=== PATIENT | female | born 1955 | race Caucasian/White ===

== ENCOUNTER → 2016-06-19 | Outpatient (CLI) | payer OTHER ==
[~2016-06-19] MED LIST: BENAZEPRIL PO; DESYREL100 MG PO; HYDROCHLOROTHIA25 MG PO; PROZAC40 MG PO; WELLBUTRIN XL150 M2 PO
== END | disposition home or self-care (01) ==
LOC: CSSDAY 08:33
DX: L40.9 Psoriasis, unspecified (principal); L40.50 Arthropathic psoriasis, unspecified; Z79.899 Other long term (current) drug therapy
CPT/HCPCS: 96413; 96415; J1745